=== PATIENT | male | born 1965 | race African-American/Black ===

== ENCOUNTER 2021-06-27 19:57 | Emergency (ER) | payer MEDICAID ==
[~2021-06-27] VITALS: Ht 162.6 cm; Wt 81.6 kg
--- NOTE | 2021-06-27 21:00 | NUR ---
pt ambulated with steady gait to room 2b c/o laceration to hand.
--- NOTE | 2021-06-27 21:06 | NUR ---
Dr. Yo at bedside for MSE.
[2021-06-27] MEDS ORDERED: TDAP DIPH,PERTUSS,TET VAC/PF 0.5 ML DISP.SYRIN IM ONE ×2 (21:45→22:07)
[2021-06-27] MEDS ORDERED: BACITRACIN ZINC OINT 15 GM TUBE TOP ONE (21:45)
[2021-06-27] MEDS ORDERED: BACITRACIN ZINC OINT 15 GM TUBE ONE (22:07)
--- NOTE | 2021-06-27 22:15 | NUR ---
Patient discharged to home in stable condition. Written and verbal after care instructions given. Patient verbalizes understanding of instructions. Stressed follow up or return to ER for worsening s/s. pt ambulated with steady gait denies pain.
[2021-06-27 22:16] VITALS: BP 153/92
== END 2021-06-27 22:20 | disposition home or self-care (01) ==
LOC: ER 20:01
DX: S61.011A Laceration without foreign body of right thumb without damage to nail, initial encounter (principal); E11.9 Type 2 diabetes mellitus without complications; Z59.00 Homelessness unspecified; X99.1XXA Assault by knife, initial encounter; Y93.89 Activity, other specified; Y92.89 Other specified places as the place of occurrence of the external cause; Y99.8 Other external cause status
CPT/HCPCS: 90715; A4663